=== PATIENT | female | born 1950 | race Two or more races ===

== ENCOUNTER 2025-09-17 11:38 | Emergency (ER) | payer OTHER ==
[~2025-09-17] VITALS: Ht 167.6 cm; Wt 77.6 kg
[2025-09-17 12:38] VITALS: BP 111/76; O2SAT 96
[2025-09-17] MEDS ORDERED: LOSARTAN POTASS50 MG PO (12:38)
[2025-09-17] MEDS ORDERED: DIPHENHYDRAMINE HCL 50 MG/ML VIAL 1ML IM STA (13:17)
[2025-09-17 13:49] LABS: BASO % 0.3 % (0.1-1.2); EOS # 0.60 (0.04-0.54); EOS % 6.6 % (0.7-7.0); LYMPH # 1.58 (1.18-3.74); LYMPH % 17.3 % (19.3-53.1); MEAN PLATELET VOLUME 11.40 fl (9.4-12.4); MONO # 0.77 (0.24-0.82); MONO % 8.4 % (4.7-12.5); NEUT # 6.14 (1.56-6.13); NEUT % 67.2 % (34.0-71.1); RED CELL DISTRIBUTION WIDTH 14.6 % (11.6-14.4)
[2025-09-17 14:37] LABS: ALT/SGPT 29.0 U/L (12-78); AST/SGOT 15.0 U/L (15-37); BILIRUBIN TOTAL 0.42 mg/dL (0.3-1.2); BUN CREA RATIO 23.0 (7.0-25.0); CREATININE SERUM 1.11 mg/dL (0.55-1.02); GFR 48.18; GLOBULINA 3.2 G/DL (2.4-3.5); GLUCOSE FASTING 98.0 mg/dL (65-100); OSMOLALITY SERUM 293.0 MOSM/KG (275-295)
== END 2025-09-17 15:18 | disposition home or self-care (01) ==
LOC: ER 11:38
PROVIDERS: General Practice
DX: R21 Rash and other nonspecific skin eruption (principal)
CPT/HCPCS: 36415; 96372; 99282; J1200